=== PATIENT | female | born 2000 | race Two or more races ===

== ENCOUNTER 2023-10-30 19:32 | Emergency (ER) | payer OTHER ==
[2023-10-30 19:39] VITALS: BP 117/70; PULSE 96; RESP 20; TEMP 98.7; BMI 27.1
[2023-10-30 21:03] LABS: BASO % 0.4 % (0-2.0); EOS % 3.1 % (0-4.5); HEMATOCRIT 32.2 % (32.4-45.2); HEMOGLOBIN 10.8 GM/dL (10.7-15.3); LYMPH % 32.6 % (8-40); MCH 26.2 pg (25.7-33.7); MCHC 33.4 g/dl (32.0-36.0); MEAN CELL VOLUME 78.3 fl (80-96); MEAN PLT VOLUME 7.7 fl (7.5-11.1); MONO % 6.6 % (3.8-10.2); NEUT % 57.3 % (42.8-82.8); PLATELET COUNT 322 10^3/uL (134-434); RBC 4.12 M/mm3 (3.60-5.2); RDW 16.4 % (11.6-15.6); WHITE BLOOD COUNT 5.9 K/mm3 (4.0-10.0)
[2023-10-30 21:27] LABS: POTASSIUM 4.1 mmol/L (3.5-5.1)
[2023-10-30 21:29] LABS: CALCIUM 9.2 mg/dL (8.5-10.1)
[2023-10-30 21:31] LABS: ALBUMIN 4.2 g/dl (3.4-5.0); BLOOD UREA NITROGEN 7.6 mg/dL (7-18)
[2023-10-30 21:33] LABS: CREATININE 0.8 mg/dL (0.55-1.3)
[2023-10-30 21:34] LABS: BILIRUBIN,TOTAL 0.5 mg/dL (0.2-1)
[2023-10-30 21:35] LABS: TOT PROT 8.3 g/dl (6.4-8.2)
== END 2023-10-30 22:41 | disposition home or self-care (01) ==
LOC: JER 19:32 → JERFT 19:32
DX: R20.2 Paresthesia of skin (principal); R20.0 Anesthesia of skin
CPT/HCPCS: 36415; 80053; 85025; 93005; 93010; 99284-25